=== PATIENT | male | born 1990 | race Caucasian/White ===

== ENCOUNTER 2017-07-08 16:01 | Emergency (ER) | payer OTHER ==
[2017-07-08] MEDS ORDERED: Charcoal ACTIVATED* 25 GM/120 ML BTL PO ONE (16:29)
--- NOTE | 2017-07-08 16:41 | ED ---
Psychiatric Complaint - HPI Summary HPI Summary: Inmate at [facility] here w/ overdose of various medications. Took depakote, seroquel, synthroid and benadryl between 13:30 and 14:30 today. Reports he took "lots of them". Toom other meds as well - not sure what they were. Reports he gets depressed this time of year. Has been on meds in the past to try to address his depression - reports nothing has worked. Denies h/o substance abuse but does have family h/o bipolar d/o. Admits he has a little nausea at this time however no ab pain, no diarrhea, no JARRELL, no CP, no SOB. Has been eating and drinking well upo until this episode earlier today. Was offered activated charcoal at custodial but declined there - he is open to drinking it here today. Med HX: Hypothryoidism - recently diagnosed - just started synthroid few months ago. He is aware this condition can affect mood if not well controlled. Allergies: takes an antihistamine - History Of Current Complaint Chief Complaint: EDOverdose Time Seen by Provider: 07/08/17 16:19 Hx Obtained From: Patient - Allergies/Home Medications Allergies/Adverse Reactions: Allergies Allergy/AdvReac Type Severity Reaction Status Date / Time Haloperidol [From Haldol] Allergy states Verified 07/31/16 15:02 tongue swelled up PMH/Surg Hx/FS Hx/Imm Hx Previously Healthy: Yes Endocrine/Hematology History: Reports: Hx Thyroid Disease - hypothryoid - takes synthroid Musculoskeletal History: Reports: Hx Orthopedic Injury - L shoulder dislocations Sensory History: Reports: Hx Contacts or Glasses - not with patient Opthamlomology History: Reports: Hx Contacts or Glasses - not with patient Neurological History: Reports: Other Neuro Impairments/Disorders - 5+ concussions Psychiatric History: Reports: Hx Anxiety, Hx Depression, Hx Bipolar Disorder - Surgical History Surgery Procedure, Year, and Place: tendon repair of middle three fingers on R hand Hx Anesthesia Reactions: No - Immunization History Date of Tetanus Vaccine: up to date Date of Influenza Vaccine: up to date Infectious Disease History: No Infectious Disease History: Denies: Traveled Outside the [place] in Last 30 Days - Family History Known Family History: Positive: Other - depression, bipolar d/o - Social History Occupation: Unemployed Lives: [facility] - Residential Alcohol Use: None Hx Substance Use: Yes Substance Use Type: Reports: Prescribed Substance Use Comment - Amount & Last Used: "collected from other prisoners" Hx Tobacco Use: No Smoking Status (MU): Never Smoked Tobacco Review of Systems Constitutional: Negative Eyes: Negative ENT: Negative Cardiovascular: Negative Respiratory: Negative Gastrointestinal: Other - see HPI Positive: no symptoms reported Musculoskeletal: Negative Skin: Negative Neurological: Negative Psychological: Other - SEE HPI All Other Systems Reviewed And Are Negative: Yes Physical Exam Triage Information Reviewed: Yes Vital Signs On Initial Exam: Initial Vitals Temp Pulse Resp BP Pulse Ox 98.5 F 73 18 129/72 95 07/08/17 16:04 07/08/17 16:04 07/08/17 16:04 07/08/17 16:04 07/08/17 16:04 Vital Signs Reviewed: Yes Appearance: Positive: Well-Appearing, No Pain Distress, Well-Nourished Skin: Positive: Warm, Dry Head/Face: Positive: Normal Head/Face Inspection Eyes: Positive: Normal, EOMI, RHEA, Conjunctiva Clear - anicteric sclera ENT: Positive: Hearing grossly normal, Pharynx normal - mucosa moist Neck: Positive: Supple Respiratory/Lung Sounds: Positive: Clear to Auscultation, Breath Sounds Present Cardiovascular: Positive: Normal, RRR Abdomen Description: Positive: Nontender, No Organomegaly, Soft Bowel Sounds: Positive: Present Musculoskeletal: Positive: Normal, Strength/ROM Intact Neurological: Positive: Normal, Sensory/Motor Intact, Alert, Oriented to Person Place, Time, CN Intact II-III Psychiatric: Positive: Other - low mood - appears depressed however is well kept and cooperative with answering questions - Brii Coma Scale Coma Scale Total: 15 Diagnostics - Vital Signs Vital Signs Temp Pulse Resp BP Pulse Ox 07/08/17 16:16 71 99 07/08/17 16:14 120/64 07/08/17 16:09 98.5 F 18 129/72 07/08/17 16:04 98.5 F 73 18 129/72 95 - Laboratory Result Diagrams: 07/08/17 16:33 07/08/17 16:33 Lab Statement: Any lab studies that have been ordered have been reviewed, and results considered in the medical decision making process. Course/Dx - Course Course Of Treatment: Spoke w/ Trisha in Po[facility] Control - advised activated charcoal initially 1gram/kg. Labs returned w/ acetaminophen 78 (elevated) - repeated 2 hours later and acetaminophen 48. Valproic Acid also repeated and < 13 x 2. No other abnormal labs and vitals stable. Pt hungry - okay to eat - tolerated food well. Monitored for a duration of 6 hours from presentation (22: 00) then pt was evaled by MH. Psychiatrist feels custodial staff can manage pt's Mh issue there. Discussed senior care affects of synthroid with pt and custodial staff - to be monitored by medical staff at custodial weekly - assess for s/sx of hyperthyroid - report to medical if present and needs ECG, etc. Pt and staff voice understanding. - Differential Dx/Clinical Impression Provider Diagnosis: Suicidal overdose, Depression Discharge - Discharge Plan Condition: Stable Disposition: HOME Patient Education Materials: Acetaminophen Overdose (ED), Adult Overdose (ED), Depression (ED), Suicide Prevention for Adults (ED) Referrals: Jaquan ASHBY,Lisa Pisano [Primary Care Provider] - Additional Instructions: You have been seen for overdose of multiple medications. All of these meds were not identified tonight however you did have an abundance of acetaminophen in your system upon arrival. This appeared to reduce after drinking charcoal - no N acetylcysteine was necessary. You also reported taking an excess amount of synthroid - this medication can present with adverse effects up to 2 weeks after taking. If you develop symptoms of hyperthyroidism, report to medical staff [facility] - they may perform an ECG to better assess your heart rhythm. It is advised that you follow-up weekly. Symptoms may include but not limited to: *rapid heart rate *palpitations *sweating *anxiety *insomnia *weight loss *diarrhea *hair loss *Protruding or puffy eyes *muscle weakness *tremor *shaking *nervousness *feeling overheated For your mental health conditions, follow-up with custodial mental health. It is advised you are one-to-one until cleared by psychiatrist.
[2017-07-08] MEDS ORDERED: NS 0.9% 1000 ML* 1,000 ML IV ONE (17:07)
[2017-07-08 17:22] LABS: Hematocrit 42 % (42-52); Hemoglobin 14.6 g/dl (14.0-18.0); Mean Corpuscular HGB Conc 35 g/dl (31-36); Mean Corpuscular Hemoglobin 31 pg (27-31); Mean Corpuscular Volume 90 fL (80-94); Mean Platelet Volume 9 um3 (7.4-10.4); Red Blood Count 4.68 10^6/ul (4.0-5.4); Red Cell Distribution Width 12 % (10.5-15)
[2017-07-08 17:33] LABS: ALT 10 U/L (7-52); AST 19 U/L (13-39); Albumin 4.8 g/dL (3.2-5.2); Alkaline Phosphatase 66 U/L (34-104); Anion Gap 4 mmol/L (2-11); BUN/Creatinine Ratio 10.9 (8-20); Blood Urea Nitrogen 11 mg/dL (6-24); CO2 Carbon Dioxide 30 mmol/L (22-32); Calcium 9.9 mg/dL (8.6-10.3); Chloride 103 mmol/L (101-111); EGFR African American 115.8 (>60); Glucose 86 mg/dL (70-100); Potassium 3.9 mmol/L (3.5-5.0); Sodium 137 mmol/L (133-145); Total Protein 7.8 g/dL (6.4-8.9)
[2017-07-08 17:36] LABS: Alcohol < 10 mg/dL (<10); Salicylate < 2.50 mg/dL (<30); Valproic Acid < 13.0 mcg/mL (50-100)
[2017-07-08 17:39] LABS: Acetaminophen 72 mcg/mL
[2017-07-08 17:43] LABS: TSH (Thyroid Stimulating Horm) 2.05 mcIU/mL (0.34-5.60)
[2017-07-08 19:20] LABS: Acetaminophen 48 mcg/mL; Valproic Acid < 13.0 mcg/mL (50-100)
[2017-07-08 19:38] LABS: Free T4 1.07 ng/dL (0.61-1.12)
[2017-07-08 20:31] LABS: Urine Bilirubin Negative (Negative); Urine Glucose Negative (Negative); Urine Nitrite Negative (Negative)
[2017-07-08 20:36] LABS: Benzodiazepine Urine Screen None Detected (None Detect)
[2017-07-08 23:52] VITALS: BP 96/44
== END 2017-07-08 23:36 | disposition home or self-care (01) ==
LOC: ED 16:01
DX: T43.592A Poisoning by other antipsychotics and neuroleptics, intentional self-harm, initial encounter (principal); T38.1X2A Poisoning by thyroid hormones and substitutes, intentional self-harm, initial encounter; T45.0X2A Poisoning by antiallergic and antiemetic drugs, intentional self-harm, initial encounter; T42.6X2A Poisoning by other antiepileptic and sedative-hypnotic drugs, intentional self-harm, initial encounter; Y92.9 Unspecified place or not applicable; F32.9 Major depressive disorder, single episode, unspecified; T14.91 Suicide attempt
CPT/HCPCS: 36415; 80053; 80164; 80307; 80320; 80329; 81003; 82140; 84439; 84443; 85025; 93005; 99283; A9270-GY; G0480